=== PATIENT | male | born 1930 ===

== ENCOUNTER 2018-02-14 10:07 | Emergency (ER) | payer MEDICARE, BC ==
[2018-02-14 11:00] VITALS: BP 165/75
--- NOTE | 2018-02-14 11:37 | UC ---
Skin Complaint HPI - HPI Summary HPI Summary: 3 days ago patient sustained a cat scratch to his left hand. This is an or L- shaped skin tear between his thumb and his first finger. The area has serous drainage and is erythematous to his wrist patient has complete neuromotor circulatory and sensation intact distal to the injury and in both his thumb and his forefinger. Patient denies fever or other constitutional symptoms - History of Current Complaint Chief Complaint: UCSkin Time Seen by Provider: 02/14/18 11:11 Stated Complaint: CAT SCRATCH Hx Obtained From: Patient Onset/Duration: Sudden Onset, Lasting Days - 3, Still Present, Worse Since - getting worse daily Skin Exposure Onset/Duration: Days Ago - 3 Onset Severity: Mild Current Severity: Mild Pain Intensity: 1 Pain Scale Used: 0-10 Numeric Location: Discrete, Hand (Left) Character: Swelling, Redness Aggravating Factor(s): Nothing Alleviating Factor(s): Nothing Associated Signs & Symptoms: Positive: Drainage, Bruising Related History: Trauma - Cat Scratch - Allergy/Home Medications Allergies/Adverse Reactions: Allergies Allergy/AdvReac Type Severity Reaction Status Date / Time No Known Allergies Allergy Verified 02/14/18 11:01 Review of Systems Constitutional: Negative Skin: Bruising - Around site of cat scratch on his left hand, Other - 7 x 7 mm skin tear on his left hand that is L-shaped wound is moderately well approximated but the skin is firmly planted and unable to fully approximate wound. Eyes: Negative ENT: Negative Respiratory: Negative Cardiovascular: Negative Gastrointestinal: Negative Genitourinary: Negative Motor: Negative Neurovascular: Negative Musculoskeletal: Negative Neurological: Negative Psychological: Negative Is Patient Immunocompromised?: No All Other Systems Reviewed And Are Negative: Yes PMH/Surg Hx/FS Hx/Imm Hx Previously Healthy: No - patient is unsure of his medical problems or which medications he takes - Surgical History Surgical History: None - Family History Known Family History: Positive: Unknown - Social History Occupation: Retired Lives: With Family Alcohol Use: None Substance Use Type: None Smoking Status (MU): Former Smoker Physical Exam Triage Information Reviewed: Yes Appearance: Well-Appearing, No Pain Distress, Well-Nourished Vital Signs: Initial Vital Signs Temp 97.4 F 02/14/18 10:56 Pulse 70 02/14/18 10:56 Resp 16 02/14/18 10:56 BP 165/75 02/14/18 10:56 Pulse Ox 99 02/14/18 10:56 Vital Signs Reviewed: Yes Eye Exam: Normal Eyes: Positive: Conjunctiva Clear ENT Exam: Normal ENT: Positive: Normal ENT inspection, Hearing grossly normal, Pharynx normal, TMs normal, Uvula midline. Negative: Nasal congestion, Tonsillar swelling, Tonsillar exudate, Trismus, Muffled voice, Hoarse voice, Dental tenderness, Sinus tenderness Dental Exam: Normal Neck exam: Normal Neck: Positive: Supple, Nontender Respiratory Exam: Normal Respiratory: Positive: Chest non-tender, No respiratory distress, No accessory muscle use Cardiovascular Exam: Normal Cardiovascular: Positive: RRR, Pulses Normal, Brisk Capillary Refill Abdominal Exam: Normal Abdomen Description: Positive: No Organomegaly, Soft. Negative: CVA Tenderness (R), CVA Tenderness (L) Bowel Sounds: Positive: Present Musculoskeletal Exam: Normal Musculoskeletal: Positive: Strength Intact, ROM Intact, No Edema Neurological Exam: Normal Neurological: Positive: Alert, Muscle Tone Normal Psychological Exam: Normal Psychological: Positive: Normal Response To Family, Age Appropriate Behavior Skin: Positive: Other - L shaped skin flap on left hand 7 mm x 7 mm in size. Some serous oozing around site swelling around site and erythema Course/Dx - Course Course Of Treatment: Telfa with Jamir wrap wash the wound 2-3 times a day warm compresses and warm soaks 2-3 times a day antibiotics follow with PCP [facility] - Diagnoses Provider Diagnoses: Elevated blood pressure, cellulitis secondary to skin tear Discharge - Sign-Out/Discharge Documenting (check all that apply): Discharge/Admit/Transfer - Discharge Plan Condition: Stable Disposition: HOME Prescriptions: Amoxicillin/Clavulanate TAB* [Augmentin TAB 875*] 875 mg PO BID #20 tab Patient Education Materials: Wound Infection (ED), Hypertension (ED), Warm Compress or Soak (ED) Referrals: Ryan Gutierrez MD [Medical Doctor] - 1 Week - Billing Disposition and Condition Condition: STABLE Disposition: HOME
== END 2018-02-14 11:52 | disposition home or self-care (01) ==
LOC: UCCORT 10:07
DX: S61.412A Laceration without foreign body of left hand, initial encounter (principal); L03.114 Cellulitis of left upper limb; W55.03XA Scratched by cat, initial encounter; Y92.9 Unspecified place or not applicable; Z87.891 Personal history of nicotine dependence
CPT/HCPCS: 99202; G0463